=== PATIENT | female | born 2000 | race Caucasian/White ===

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

== ENCOUNTER 2025-05-12 13:54 | Emergency (ER) | payer OTHER, SELFPAY ==
[2025-05-12 14:07] VITALS: BP 101/65; PULSE 84; RESP 16; TEMP 36.6; O2SAT 100
--- NOTE | 2025-05-12 14:18 | ED.URI ---
HPI - URI/Sore Throat General Chief Complaint: Upper Respiratory Infection Stated Complaint: Sore Throat Time Seen by Provider: 05/12/25 14:18 Source: patient, RN notes reviewed and old records reviewed Mode of arrival: ambulatory Limitations: no limitations History of Present Illness HPI Narrative: 25 year old female who [facility] with complaints of 2 day duration of sore throat. Patient reports that right side of throat is especially sore with some exudates noted. Patient reports that she has had strep pharyngitis in the past and has taken Amoxicillin without difficulty. Patient has not had any fevers and she has not taken any OTC medications for her complaints. MD elicited complaint: sore throat Pertinent past history: other (strep throat) Onset (ago): day(s) (2) Consistency: progressively worsening Pain scale (0-10): 2 Able to tolerate fluids by mouth: Yes Exacerbating factors: swallowing Treatments prior to arrival: none Related Data Home Medications ?Medication ?Instructions ?Recorded ?Confirmed ?Last Taken ?Type fluoxetine 10 mg tablet mg 05/12/25 Unknown History mirtazapine 15 mg tablet mg 05/12/25 Unknown History Allergies Allergy/AdvReac Type Severity Reaction Status Date / Time hydrocodone Allergy Severe Hypotension Verified 05/12/25 14:24 oxycodone Allergy Severe Hypotension Verified 05/12/25 14:24 Review of Systems Review of Systems: CONSTITUTIONAL: Denies malaise, chills, sweats, or fever. EYES: Denies visual changes, redness, or discharge. ENT: Reports no rhinorrhea, congestion, sinus pain, no otalgia and positive for sore throat. CARDIOVASCULAR: Denies chest pain, palpitations, or edema. RESPIRATORY: Reports no cough.? Denies dyspnea. GASTROINTESTINAL: Denies abdominal pain, nausea, vomiting, diarrhea SKIN: Denies rash or itching. MUSCULOSKELETAL: Denies myalgia. NEUROLOGIC: Denies headache. All systems reviewed & are unremarkable except as noted in HPI and below PMFSH Past Medical History Medical History Strep sore throat 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 adult Surgical History Surgical History S/P repair of tethered spinal cord History of lumbar surgery Social History Social History Smoking status: Never smoker Comments At time of signature, agree with nursing past medical, surgical, social and family history. There is no relevant family history pertinent to the presenting complaint Exam Narrative: GENERAL: Well-appearing, well-nourished, and in no acute distress. HEAD: Normocephalic EYES: PERRLA, conjunctivae clear ENT: Nares clear, turbinates edematous and erythematous, clear discharge. Mucous membranes moist. TM pearly lambert with dull light reflex bilaterally; no tragal tenderness. Oropharynx erythematous without lesions. Tonsils minimally enlarged and with exudate right side, no drooling, no hoarseness, no trismus, uvula midline. NECK: Supple. No lymphadenopathy CHEST: Clear to auscultation, breath sounds equal. No wheezing, rhonchi, rales, or stridor. No respiratory distress, speaks in full sentences. no cough noted SAO2 100% on room air HEART: Regular rate and rhythm. No murmur heard. SKIN: Warm, dry, no rash. NEURO: Alert and oriented x3. PSYCH: Normal mood and affect Course Course Level of Care: Express Care Visit Vital Signs Vital signs: Vital Signs Temperature 36.6 C 05/12/25 14:07 Pulse Rate 84 05/12/25 14:07 Respiratory Rate 16 05/12/25 14:07 Blood Pressure 101/65 05/12/25 14:07 Pulse Oximetry 100 05/12/25 14:07 Oxygen Delivery Room Air 05/12/25 14:07 Temperature 36.6 C 05/12/25 14:07 Pulse Rate 84 05/12/25 14:07 Respiratory Rate 16 05/12/25 14:07 Blood Pressure 101/65 05/12/25 14:07 Pulse Oximetry 100 05/12/25 14:07 Oxygen Delivery Room Air 05/12/25 14:07 reviewed MDM MDM Narrative Medical decision making narrative: Patient presents with sore throat for the past 2 days with patient positive for strep pharyngitis. Amoxicillin ordered to treat strep and OTC medications for symptom control. Anticipatory guidance and reasons to seek care in MD reviewed with patient verbalizing understanding Differential Diagnosis Differential Diagnosis: Differential diagnostic considerations for upper respiratory infection include upper respiratory infection, croup, otitis media, sinusitis, viral infection, bronchitis, influenza, pharyngitis, strep, uvulitis.? Lab Data MDM Lab Attestation statement: I personally reviewed the patient's lab results. Lab results narrative: strep screen positive Critical Care Time Critical Care Time Critical Care Time: No Discharge Plan Discharge Clinical Impression: Strep sore throat Patient Disposition: Home Condition: Stable Instructions: Antibiotic Form, Strep Throat (ED) Additional Instructions: You tested positive for Group A strep . Take the entire course of antibiotics. Throw away your current toothbrush and begin using a new toothbrush in 48 hours in order to prevent re-infection. Sanitize all reusable water bottles . Do not share items with others. Salt water gargles may alleviate some of the throat discomfort. You can take Tylenol or ibuprofen per the package instructions for pain/fever. You must be on oral antibiotic for 24 hours before you return to work. Patient Language: Malay Prescriptions: New amoxicillin 500 mg capsule 1,000 mg PO Q12H 10 Days Qty: 40 0RF Rx Instructions: take all doses of oral antibiotic No Action fluoxetine 10 mg tablet mirtazapine 15 mg tablet Follow-up/Referrals: PHYSICIAN NOT ON STAFF,NONSTAFF [Primary Care Provider] Stand Alone Forms: Work/School Release IP Time of Disposition: 14:30 Quality Claudia Coma Scale Eyes: Open Verbal: Oriented and Alert Motor: Follows Commands Claudia Coma Total Score: 15
[2025-05-12 14:36] LABS: EDSTREPNEGPOS1 Positive (Negative)
== END 2025-05-12 14:40 | disposition home or self-care (01) ==
PROVIDERS: Emergency Provider Registered Nurse
DX: J02.0 Streptococcal pharyngitis (principal)
CPT/HCPCS: 87880; 99213; G0463

== ENCOUNTER 2025-05-14 22:34 | Emergency (ER) | payer OTHER, SELFPAY ==
--- NOTE | ~2025-05-14 | XR_ITS ---
Examination: XR chest 1V portable Clinical History: shortness of breath Comparison: None Technique: Portable AP Findings: Heart size normal. Lungs clear. No acute bony abnormality. Right clavicle plate and screw fixation. IMPRESSION: 1. No acute cardiopulmonary findings given portable technique. Reviewed, dictated and finalized at location R. [facility]
[2025-05-14 22:48] VITALS: BP 100/65; PULSE 108; RESP 18; TEMP 36.7; O2SAT 100
--- NOTE | 2025-05-14 23:06 | PC.NURSE ---
Pt presents to ED c/o worsening 12/01 headache, neck pain and upper back. Per pt was diagnosed with strep 05/11, is currently taking ABX but states she isnt feeling any better.
[2025-05-14 23:08] VITALS: BP 106/76; PULSE 91; RESP 20; TEMP 37.4; O2SAT 100
--- NOTE | 2025-05-14 23:14 | ECG_ITS ---
Test Date: 2025-05-14 23:49:36 Measurements Intervals [place] Rate: 83 P: 26 ME: 181 QRS: 26 QRSD: 85 T: 8 QT: 361 QTc: 424 Interpretive Statements SINUS RHYTHM POSSIBLE RIGHT VENTRICULAR CONDUCTION DELAY BORDERLINE ST-T WAVE ABNORMALITY- ANT/INF LEADS BORDERLINE ECG No previous ECG available for comparison Electronically Signed On 05-15-2025 06:43:30 DOOR CUTTER by Jesús Maurer D.O.
[2025-05-14 23:45] LABS: Alveolar/Arterial O2 Gradient 10.9 mmHg; Fractional Inspired Oxygen 21 %; HCO3 ABG 22.7 mEq/l (22.0-26.0); Oxygen Content ABG 17.4 %vol (16.0-22.0); Oxygen Saturation ABG 97.8 % (95.0-100.0); PCO2 ABG 33.1 mmHg (35.0-45.0); PO2 ABG 99.2 mmHg (80.0-100.0); PO2 FiO2 Ratio Arterial Blood 4.72 %
[2025-05-14 23:47] LABS: Modified Allen's Test Pass; Site Drawn LEFT RADIAL
[2025-05-15 00:07] LABS: Hematocrit 37.1 % (37.0-47.0); Hemoglobin 11.9 g/dL (12.0-15.0); Immature Granulocyte Percent A 0.3 % (0-0.5); Lymphocytes Absolute Auto 1.40 K/mm3 (0.9-3.2); Mean Corpuscular HGB Conc 32.1 g/dl (32-36); Mean Corpuscular Hemoglobin 25.1 pg (26-34); Mean Corpuscular Volume 78.1 fl (80-100); Nucleated Red Blood Cells Absolute Auto 0.000 K/mm3 (0.0-0.012); Nucleated Red Blood Cells Perc 0.0 % (0.0-0.2); Platelet Count Result 314 k/mm3 (150-375); Red Blood Count 4.75 M/mm3 (4.2-5.4); White Blood Count 6.3 K/mm3 (4.5-10.0)
[2025-05-15 00:17] LABS: Lipase 78 U/L (23-300); Magnesium 1.7 mg/dL (1.6-2.3)
[2025-05-15 00:21] LABS: Alanine Aminotransferase 11 U/L (6-35); Albumin Level 4.3 g/dL (3.5-5.1); Alkaline Phosphatase 64 U/L (38-126); Anion Gap 7 mmol/L (4-12); Aspartate Amino Transferase 22 U/L (14-36); Bilirubin,Total 0.4 mg/dL (0.2-1.3); Blood Urea Nitrogen 13 mg/dL (7-17); Calcium 9.2 mg/dL (8.4-10.2); Carbon Dioxide 26 mmol/L (22-30); Chloride 104 mmol/L (98-107); Estimated Glomerular Filt Rate > 60; Glucose 100 mg/dL (65-110); Potassium 3.5 mmol/L (3.4-5.0); Sodium 137 mmol/L (137-145); Total Protein 7.9 g/dL (6.3-8.2)
[2025-05-15 00:29] LABS: NT Pro B Type Natriuretic Pept 22 pg/mL (19.9-100)
[2025-05-15 00:30] LABS: Troponin I < 0.012 ng/mL (0.000-0.034)
[2025-05-15 00:31] VITALS: BP 111/78; PULSE 82; RESP 24; O2SAT 100
[2025-05-15 00:38] LABS: Procalcitonin < 0.0 ng/mL
[2025-05-15 00:44] LABS: Influenza A QL RT-PCR Negative (Negative); Influenza B QL RT-PCR Negative (Negative); RSV RNA, RT-PCR Negative (Negative); SARS-CoV-2 RNA PCR Negative (Negative)
[2025-05-15 00:45] VITALS: PULSE 79; RESP 21; O2SAT 98
[2025-05-15 00:46] VITALS: BP 111/79; PULSE 81; RESP 19; O2SAT 98
--- NOTE | 2025-05-15 01:11 | ED.GENADULT ---
HPI - General Adult General Chief complaint: Shortness of Breath/Dyspnea Stated complaint: SOB Time Seen by Provider: 05/14/25 23:09 History of Present Illness HPI narrative: Patient is a 25-year-old female who presents emergency department with chief complaint of shortness of breath patient states she feels as though her body is stopping breathing whenever she walks the patient states that she has to force herself debris and reports that she has also had headache and she has also had neck discomfort the patient reports she was diagnosed with strep pharyngitis several days ago and is currently antibiotics the patient states that she has not had a fever reports no productive cough reports no peripheral edema denies stridor Related Data Home Medications ?Medication ?Instructions ?Recorded ?Confirmed ?Last Taken ?Type fluoxetine 10 mg tablet mg 05/12/25 Unknown History mirtazapine 15 mg tablet mg 05/12/25 Unknown History Allergies Allergy/AdvReac Type Severity Reaction Status Date / Time hydrocodone Allergy Severe Hypotension Verified 05/12/25 14:24 oxycodone Allergy Severe Hypotension Verified 05/12/25 14:24 Review of Systems Review of Systems: A 10 system review of systems was completed on the patient and is negative except for what is stated in the HPI. Nursing and ancillary documentation was reviewed. [facility] Past Medical History Medical History Strep sore throat 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 adult Surgical History Surgical History S/P repair of tethered spinal cord History of lumbar surgery Social History Social History Smoking status: Never smoker Exam Narrative: GENERAL: Well-appearing, well-nourished, and in no acute distress. HEAD: Normocephalic, atraumatic. EYES: PERRLA and EOMI. ENT: Nares clear, no rhinorrhea or epistaxis. Mucous membranes moist. NECK: Supple. Moves neck without difficulty no stiffness, CHEST: Clear to auscultation. No respiratory distress. No stridor HEART: Regular rate and rhythm. No murmur heard. Normal peripheral pulses. ABDOMEN: Soft, nontender, nondistended, normal active bowel sounds. EXTREMITIES: Normal range of motion. No edema. SKIN: Warm, dry, no rash. NEURO: No focal deficits. Alert and oriented x3. PSYCH: Normal mood and affect. Course Vital Signs Vital signs: Vital Signs Temperature 36.7 C 05/14/25 22:48 Pulse Rate 108 H 05/14/25 22:48 Respiratory Rate 18 05/14/25 22:48 Blood Pressure 100/65 05/14/25 22:48 Pulse Oximetry 100 05/14/25 22:48 Oxygen Delivery Room Air 05/14/25 22:48 Temperature 37.4 C 05/14/25 23:08 Pulse Rate 91 05/14/25 23:08 Respiratory Rate 20 05/14/25 23:08 Blood Pressure 106/76 05/14/25 23:08 Pulse Oximetry 100 05/14/25 23:08 Oxygen Delivery Room Air 05/14/25 22:48 MDM Differential Diagnosis Differential Diagnosis: Differential diagnosis includes pneumonia, ACS, pulmonary embolism, COVID, flu, RSV, strep pharyngitis, Laboratory studies were obtained on the patient showed CBC with white count of 6.3 D-dimer was negative ABG showed pH 7.455 and a pCO2 of 33 patient had a saturation of 97% electrolytes showed no acute abnormality lactic acid was 0.6 troponin was negative BNP was negative EKG showed no acute ischemic changes Patient was given doses site Medrol emergency department discharged home on a steroid pulse Lab Data 05/14/25 23:52 05/14/25 23:52 Labs: Lab Results 05/14/25 Range/Units 23:52 WBC 6.3 (4.5-10.0) K/mm3 RBC 4.75 (4.2-5.4) M/mm3 Hgb 11.9 L (12.0-15.0) g/dL Hct 37.1 (37.0-47.0) % MCV 78.1 L (80-100) fl MCH 25.1 L (26-34) pg MCHC 32.1 (32-36) g/dl RDW 14.9 H (11.5-14.5) % Plt Count 314 (150-375) k/mm3 MPV 9.8 (7.4-10.4) fl Immature Gran % (Auto) 0.3 (0-0.5) % Neut % (Auto) 69.4 (45.5-73.1) % Lymph % (Auto) 22.3 (18.3-44.2) % [place] % (Auto) 6.5 (2.6-8.5) % Eos % (Auto) 1.0 (0-4.4) % Baso % (Auto) 0.5 (0.2-1.2) % Lymph # (Auto) 1.40 (0.9-3.2) K/mm3 [place] # (Auto) 0.4 (0.1-0.6) K/mm3 Eos # (Auto) 0.1 (0-0.3) K/mm3 Baso # (Auto) 0.0 (0.0-0.1) K/mm3 Abs Immat Gran (auto) 0.02 (0.00-0.031) K/mm3 Absolute Neuts (auto) 4.4 (1.3-6.7) K/mm3 Absolute Nucleated RBC 0.000 (0.0-0.012) K/mm3 Nucleated RBC % 0.0 (0.0-0.2) % D-Dimer 0.33 (<0.48) ug/mL Sodium 137 (137-145) mmol/L Potassium 3.5 (3.4-5.0) mmol/L Chloride 104 (98-107) mmol/L Carbon Dioxide 26 (22-30) mmol/L Anion Gap 7 (4-12) mmol/L BUN 13 (7-17) mg/dL Creatinine 0.77 (0.7-1.0) mg/dL Estim Creat Clear Calc Not Reportable Estimated GFR > 60 (59 - ) Glucose 100 (65-110) mg/dL Lactic Acid 0.6 L (0.7-2.0) mmol/L Calcium 9.2 (8.4-10.2) mg/dL Magnesium 1.7 (1.6-2.3) mg/dL Total Bilirubin 0.4 (0.2-1.3) mg/dL AST 22 (14-36) U/L ALT 11 (6-35) U/L Alkaline Phosphatase 64 (38-126) U/L Troponin I < 0.012 (0.000-0.034) ng/mL NT-Pro-B Natriuret Pep 22 (19.9-100) pg/mL Total Protein 7.9 (6.3-8.2) g/dL Albumin 4.3 (3.5-5.1) g/dL Lipase 78 (23-300) U/L Procalcitonin < 0.0 ng/mL Influenza A (RT-PCR) Negative (Negative) Influenza B (RT-PCR) Negative (Negative) RSV (RT-PCR) Negative (Negative) SARS-CoV-2 RNA (RT-PCR) Negative (Negative) ABG Data ABG results: 05/14/25 23:33 Puncture Site Left radial ABG pH 7.455 H ABG pCO2 33.1 L ABG pO2 99.2 ABG PO2/FiO2 Ratio 4.72 ABG HCO3 22.7 ABG O2 Saturation 97.8 ABG O2 Content 17.4 ABG Base Excess -0.5 A-a Gradient 10.9 Oxyhemoglobin 97.4 Total Hemoglobin 12.6 O2 Delivery Device Room air O2 Liters/Min Not Reportable FiO2 21 Discharge Plan Discharge Clinical Impression: Pharyngitis, Shortness of breath Patient Disposition: Home Condition: Stable Instructions: Antibiotic Form, Pharyngitis (ED), Shortness of Breath (ED) Patient Language: French Prescriptions: New prednisone 20 mg tablet 40 mg PO DAILY 5 Days Qty: 10 0RF No Action fluoxetine 10 mg tablet mirtazapine 15 mg tablet amoxicillin 500 mg capsule 1,000 mg PO Q12H 10 Days Qty: 40 0RF Rx Instructions: take all doses of oral antibiotic Follow-up/Referrals: PHYSICIAN NOT ON STAFF,NONSTAFF [Primary Care Provider] Time of Disposition: 01:16
[2025-05-15 01:29] VITALS: BP 107/77; PULSE 93; RESP 16; O2SAT 99
[2025-05-15 01:32] VITALS: BP 103/63; PULSE 108; RESP 20
[2025-05-15] MEDS: ACETAMINOPHEN 500 MG TABLET 1000 MG PO (02:00)
== END 2025-05-15 03:52 | disposition home or self-care (01) ==
PROVIDERS: Emergency Provider Emergency Medicine
DX: R06.02 Shortness of breath (principal); J02.9 Acute pharyngitis, unspecified; Z20.822 Contact with and (suspected) exposure to COVID-19
CPT/HCPCS: 36415; 36600; 71045; 80053; 82805; 83605; 83690; 83735; 83880; 84145; 84484; 85018; 85025; 85380; 87637; 93005; 96374; 99284; A9270; J2919

== ENCOUNTER 2025-05-19 10:49 | Emergency (ER) | payer OTHER, SELFPAY ==
[2025-05-19 10:58] VITALS: BP 102/70; PULSE 90; RESP 20; TEMP 36.2; O2SAT 100
--- NOTE | 2025-05-19 11:04 | ED.FEMALEGU ---
HPI - Female Genitourinary General Chief complaint: Urogenital-Female Stated complaint: STD Source: patient Mode of arrival: ambulatory Limitations: no limitations History of Present Illness HPI Narrative: this is a 25-year-old female patient who presents to the Urgent Care for full panel STI testing after possible exposure to general herpes. She states her partner tested positive for herpes. she denies any symptoms. patient is wanting full blood, vaginal and urine testing. patient denies any distress otherwise. MD elicited complaint: possible STD Onset (ago): day(s) (1) Location of symptoms: none Vaginal discharge: none Vaginal bleeding: none Treatment prior to arrival: none Sexual activity: Yes and Known STD Exposure Patient : No Related Data Home Medications ?Medication ?Instructions ?Recorded ?Confirmed ?Last Taken ?Type fluoxetine 10 mg tablet mg 05/12/25 Unknown History mirtazapine 15 mg tablet mg 05/12/25 Unknown History Allergies Allergy/AdvReac Type Severity Reaction Status Date / Time hydrocodone AdvReac Severe Hypotension Verified 05/19/25 11:15 oxycodone AdvReac Severe Hypotension Verified 05/19/25 11:15 Review of Systems Review of Systems: All systems reviewed & are unremarkable except as noted in HPI and below PMFSH Past Medical History Medical History Strep sore throat 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 adult Surgical History Surgical History S/P repair of tethered spinal cord History of lumbar surgery Social History Social History Smoking status: Never smoker Exam Const: General: healthy appearing Nutritional Appearance: well nourished Orientation/consciousness: patient oriented x3 Limitations: no limitations HENMT: Head: normal to inspection Ears: external ears normal Face/Nose/Sinus: Normal external nose present Face and sinus: normal facial exam Mouth: Yes Normal oral and palatal mucosa present Teeth and gingiva: dentition normal Throat: posterior oropharynx normal Eyes: Conjunctivae: conjunctivae normal Pupils: Equal, round and reactive pupils present EOM: EOMs intact bilaterally Neck: Neck: normal visual inspection Chest: Chest palpation & inspection: normal inspection of the chest Resp: Effort & Inspection: normal respiratory effort Auscultation: clear to auscultation bilaterally Cardio: Rate: regular rate Rhythm: regular rhythm GI: GI Palp: Yes Soft to palpation Auscultation: normal bowel sounds : General: Yes bladder normal to palpation Back/Spine/Pelvis: Back: no CVA tenderness Skin: General skin exam: normal color Rashes: no rashes Wounds: no wounds Neuro: General: patient oriented x3 Cranial nerves: Yes Nystagmus not present Speech: normal speech Gait exam (Neuro): Normal gait present Extrem: General: normal to inspection and no clubbing, cyanosis or edema Psych: Appearance: grossly normal Mental Status: mental status grossly normal Affect: normal affect Attitude: cooperative Course Course Emergency Course: this is a 25-year-old female patient who presents to the Urgent Care for full panel STI testing after possible exposure to general herpes. She states her partner tested positive for herpes. she denies any symptoms. patient is wanting full blood, vaginal and urine testing. patient denies any distress otherwise. vital signs stable discussed with patient need for testing is appropriate, however at this urgent care we are unable to do blood work for STI. explained STI testing available and treatment options. patient however would like to have full work up done and once. explained that this is very reasonable. patient denies distress. educated on local facilities or visiting her PCP that could assist with STI testing. patient verbalized understanding. Discussed in great detail safe sex practices. She verbalizes understanding she is agreeable. Level of Care: Express Care Visit Vital Signs Vital signs: Vital Signs Temperature 97.2 F L 05/19/25 10:58 Pulse Rate 90 05/19/25 10:58 Respiratory Rate 20 05/19/25 10:58 Blood Pressure 102/70 05/19/25 10:58 Pulse Oximetry 100 05/19/25 10:58 Oxygen Delivery Room Air 05/19/25 10:58 Temperature 97.2 F L 05/19/25 10:58 Pulse Rate 90 05/19/25 10:58 Respiratory Rate 20 05/19/25 10:58 Blood Pressure 102/70 05/19/25 10:58 Pulse Oximetry 100 05/19/25 10:58 Oxygen Delivery Room Air 05/19/25 10:58 MDM MDM Narrative Medical decision making narrative: this is a 25-year-old female patient who presents to the Urgent Care for full panel STI testing after possible exposure to general herpes. She states her partner tested positive for herpes. she denies any symptoms. patient is wanting full blood, vaginal and urine testing. patient denies any distress otherwise. vital signs stable discussed with patient need for testing is appropriate, however at this urgent care we are unable to do blood work for STI. explained STI testing available and treatment options. patient however would like to have full work up done and once. explained that this is very reasonable. patient denies distress. educated on local facilities or visiting her PCP that could assist with STI testing. patient verbalized understanding. Discussed in great detail safe sex practices. She verbalizes understanding she is agreeable. patient discharged with outpatient follow-up instructions. Differential Diagnosis Differential Diagnosis: exposure to STI Medical Records I have reviewed the following patient records and this information was taken into consideration when formulating the assessment and plan.: previous clinic visits Discharge Plan Discharge Clinical Impression: Possible exposure to STI Patient Disposition: Home Condition: Stable Instructions: Safe Sex Practices (ED) Additional Instructions: Follow up with Outpatient clinic as explained follow up with your primary MD as needed for any worrisome sign or symptoms return to the emergency department with any worrisome sign or symptom Patient Language: Northern Irish Prescriptions: No Action fluoxetine 10 mg tablet mirtazapine 15 mg tablet amoxicillin 500 mg capsule 1,000 mg PO Q12H 10 Days Qty: 40 0RF Rx Instructions: take all doses of oral antibiotic prednisone 20 mg tablet 40 mg PO DAILY 5 Days Qty: 10 0RF Follow-up/Referrals: PHYSICIAN NOT ON STAFF,NONSTAFF [Primary Care Provider] Time of Disposition: 11:22
== END 2025-05-19 11:29 | disposition home or self-care (01) ==
PROVIDERS: Emergency Provider Nurse Practitioner Family
DX: Z11.3 Encounter for screening for infections with a predominantly sexual mode of transmission (principal)
CPT/HCPCS: 99211; G0463

== ENCOUNTER 2025-05-22 12:11 | Emergency (ER) | payer OTHER, SELFPAY ==
[2025-05-22 12:26] VITALS: BP 117/78; PULSE 82; RESP 18; TEMP 36.8; O2SAT 100
--- NOTE | 2025-05-22 12:57 | ED.URI ---
HPI - URI/Sore Throat General Chief Complaint: Upper Respiratory Infection Stated Complaint: Rash and swollen lymph nodes Time Seen by Provider: 05/22/25 12:57 Source: patient, RN notes reviewed and old records reviewed Mode of arrival: ambulatory Limitations: no limitations History of Present Illness HPI Narrative: 25-year-old female presents to the [facility] with 2 days of worsening sore throat. Ten days ago was diagnosed with strep, missed multiple doses has 5 days worth of amoxicillin in her purse. Patient was seen in the ER on the prescribed prednisone. Patient also concern for a rash to the left posterior thigh and a swollen lymph node to the left groin. Related Data Home Medications ?Medication ?Instructions ?Recorded ?Confirmed ?Last Taken ?Type fluoxetine 20 mg capsule mg 05/22/25 Unknown History Allergies Allergy/AdvReac Type Severity Reaction Status Date / Time hydrocodone AdvReac Severe Hypotension Verified 05/22/25 12:38 oxycodone AdvReac Severe Hypotension Verified 05/22/25 12:38 Review of Systems Review of Systems: All systems reviewed & are unremarkable except as noted in HPI and below Constitutional: Constitutional: Reports no additional constitutional complaints ENT: Reports as per HPI and Reports sore throat Cardiovascular: Cardiovascular: Reports no additional cardiovascular complaints, Denies chest pain and Denies dyspnea Respiratory: Respiratory: Reports no additional respiratory complaints, Denies chest congestion, Denies cough and Denies dyspnea Musculoskeletal: Musculoskeletal: Reports no additional musculoskeletal complaints Integumentary/Breasts: Skin/Breast: Reports as per HPI and Reports rash PMFSH Past Medical History Medical History Strep sore throat 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 There is no relevant family history pertinent to the patient complaint. Exam Const: General: cooperative, healthy appearing, comfortable, no acute distress, well developed, alert and well nourished Nutritional Appearance: well nourished Orientation/consciousness: patient oriented x3 Limitations: no limitations HENMT: Head: normal to inspection Ears: hearing grossly normal bilaterally, external ears normal, TM's normal bilaterally, EAC's normal, mastoids normal and no periauricular adenopathy Face/Nose/Sinus: Normal external nose present and Normal nares present Face and sinus: normal facial exam, sinuses nontender and face symmetric Throat: posterior oropharynx normal, uvula midline and no uvular edema Eyes: General: appearance normal, both eyes and all related structures Alignment and Position: alignment normal Neck: Neck: normal visual inspection, full ROM, no lymphadenopathy and no meningeal signs Chest: Chest palpation & inspection: normal inspection of the chest Resp: Effort & Inspection: normal respiratory effort and able to speak in complete sentences Auscultation: clear to auscultation bilaterally, no crackles, no rales, no rhonchi and no wheezes Cardio: Rate: regular rate Skin: General skin exam: normal color and no rashes or lesions noted Rashes: rashes noted (Red mildly raised bumps without drainage left posterior mid thigh) Other: One mildly swollen lymph node, most likely reactive, soft, movable left groin Neuro: General: patient oriented x3, gait normal, moves all extremities and no meningeal signs Cognition (Neuro): normal cognition Speech: normal speech Gait exam (Neuro): Normal gait present Extrem: General: normal to inspection, full ROM, capillary refill normal and normal gait Psych: Appearance: grossly normal and well kempt Mental Status: mental status grossly normal Speech and movement: Normal speech and movement present and Clear speech present Affect: normal affect Attitude: cooperative Course Course Level of Care: Express Care Visit Vital Signs Vital signs: Vital Signs Temperature 98.3 F 05/22/25 12:26 Pulse Rate 82 05/22/25 12:26 Respiratory Rate 18 05/22/25 12:26 Blood Pressure 117/78 05/22/25 12:26 Pulse Oximetry 100 05/22/25 12:26 Temperature 98.3 F 05/22/25 12:26 Pulse Rate 82 05/22/25 12:26 Respiratory Rate 18 05/22/25 12:26 Blood Pressure 117/78 05/22/25 12:26 Pulse Oximetry 100 05/22/25 12:26 reviewed MDM MDM Narrative Medical decision making narrative: Patient sitting in exam room. Patient is nontoxic, vitals stable. Patient is to strep positive most likely due to her missing multiple days of her amoxicillin. Patient also with a rash to the posterior thigh most likely folliculitis. Patient is appropriate for outpatient treatment with strict follow-up with primary care provider in 1 week. Discharge instructions reviewed with patient, as well as provided in writing per nursing staff. The instructions also include specific and strict return/GO TO THE ER as well as f/u information. All questions have been answered, and the patient deny any further questions with discharge and discharge plan. Some parts of this dictation were generated by voice recognition software and may contain typographical and/or grammatical inaccuracies. Differential Diagnosis Differential Diagnosis: Differential diagnostic considerations for upper respiratory infection include upper respiratory infection, croup, otitis media, sinusitis, viral infection, bronchitis, influenza, pharyngitis, strep, uvulitis.? Lab Data MDM Lab Attestation statement: I personally reviewed the patient's lab results. Labs: Lab Results 05/22/25 05/22/25 05/22/25 Range/Units 13:15 13:16 13:23 POC Influenza A Ag Negative Negative Negative (Negative) POC Influenza B Ag Negative Negative (Negative) POC SARS CoV-2 Ag (Negative) POC Grp A Strep Screen Positive (Negative) 05/22/25 05/22/25 05/22/25 Range/Units 13:23 13:23 13:23 POC Influenza A Ag Negative (Negative) POC Influenza B Ag Negative Negative (Negative) POC SARS CoV-2 Ag Negative Negative (Negative) POC Grp A Strep Screen (Negative) Reviewed Discharge Plan Discharge Clinical Impression: Strep pharyngitis, Folliculitis Patient Disposition: Home Condition: Stable Instructions: Antibiotic Form, Strep Throat (DC), Folliculitis (ED) Additional Instructions: The most important part of your care is following up with your primary care provider within 1 week After 24-48 hours on antibiotics, Throw the toothbrush away, start using a new one. Please be sure to wash bed linens especially pillow cases. Repeat once you finish the antibiotics. Do not share drinks. Take Motrin alternating with Tylenol for pain and fever alternating every 4 hours. Increase fluids, avoid caffeine. Give plenty of water, juice, Gatorade, Pedialyte, ice pops in Jell-O Follow up with Primary provider if not getting better this week For new or worsening symptoms go directly to the emergency room Patient Language: Turkmen Prescriptions: New cefdinir 300 mg capsule 300 mg PO Q12H Qty: 20 0RF clindamycin phosphate 1 % solution 1 applic topical BID 7 Days Qty: 60 0RF No Action amoxicillin 500 mg capsule 1,000 mg PO Q12H 10 Days Qty: 40 0RF Rx Instructions: take all doses of oral antibiotic fluoxetine 20 mg capsule Follow-up/Referrals: UNKNOWN,DOCTOR [Primary Care Provider] Stand Alone Forms: Work/School Release IP Time of Disposition: 13:23
[2025-05-22 13:18] LABS: EDSTREPNEGPOS1 Positive (Negative)
[2025-05-22 13:25] LABS: EDINFLUASCREEN Negative (Negative); EDINFLUBSCREEN Negative (Negative)
[2025-05-22 13:25] LABS: EDINFLUASCREEN Negative (Negative); EDINFLUBSCREEN Negative (Negative)
[2025-05-22 13:25] LABS: EDCOVIDSCREEN Negative (Negative); EDINFLUASCREEN Negative (Negative); EDINFLUBSCREEN Negative (Negative)
== END 2025-05-22 13:24 | disposition home or self-care (01) ==
PROVIDERS: Emergency Provider Nurse Practitioner
DX: J02.0 Streptococcal pharyngitis (principal); L73.9 Follicular disorder, unspecified
CPT/HCPCS: 87426; 87804; 87880; 99213; G0463